=== PATIENT | male | born 1965 | race Caucasian/White ===

== ENCOUNTER 2019-12-12 06:31 | Outpatient (RCR) | payer BC ==
[~2019-12-12] VITALS: Ht 182.9 cm; Wt 90.9 kg
[~2019-12-12 06:31] MED LIST: ACET325T49 PO; ACHD5005 PO; DOCU-143 PO; LOPE-175 PO
== END 2019-12-12 15:44 | disposition home or self-care (01) ==
LOC: PREOP 06:31
PROVIDERS: ATTEND Surgery
DX: Z01.818 Encounter for other preprocedural examination (principal); Z11.59 Encounter for screening for other viral diseases
CPT/HCPCS: 87635

== ENCOUNTER 2019-12-16 11:57 | Day surgery (SDC) | payer BC ==
[2019-12-16] VITALS (8 sets, daily range): BP systolic 115–139; BP diastolic 62–90
[~2019-12-16] VITALS: Ht 182.9 cm; Wt 90.9 kg
[2019-12-16] MEDS ORDERED: LACTATED RINGERS 1,000 ML IV STA (12:00)
[2019-12-16] MEDS ORDERED: LACTATED RINGERS 1,000 ML IV ONE (12:08)
[2019-12-16] MEDS ORDERED: PROPOFOL INJECTION 50 ML IV ONE ×2 (13:06→13:20)
[2019-12-16] MEDS ORDERED: MIDAZOLAM 2 MG/2 ML (VERSED) VIAL ONE (13:06)
--- OUTSIDE RECORDS SUMMARY | 2019-12-16 13:45 | XMS REPORT | Continuity of Care Document ---
Author Organization Unknown Address Unknown Phone Unavailable Allergies Active Description Code Type Severity Reaction Onset Reported/Identified Relationship to Patient Clinical Status Yes No Known Drug Allergies [id number] Drug Allergy Unknown N/A 07/08/2012 Medications There is no data. Problems Date Dx Coded Attending Type Code Diagnosis Diagnosed By 07/05/1543 JA TALAMANTES DO Ot Z01.818 ENCOUNTER FOR OTHER PREPROCEDURAL EXAMIN 07/05/1543 JA TALAMANTES DO Ot Z11. 59 ENCOUNTER FOR SCREENING FOR OTHER VIRAL 05/19/2019 JA TALAMANTES DO Ot A41. 9 SEPSIS, UNSPECIFIED ORGANISM 05/19/2019 JA TALAMANTES DO Ot K56. 50 INTESTNL ADHESIONS, UNSP TO PARTIAL V 05/19/2019 JA TALAMANTES DO Ot K56. 51 INTESTINAL ADHESIONS [BANDS], WITH PARTI 05/19/2019 JA TALAMANTES DO Ot N17. 9 ACUTE KIDNEY FAILURE, UNSPECIFIED 05/19/2019 JA TALAMANTES DO Ot R19. 7 DIARRHEA, UNSPECIFIED 05/19/2019 JA TALAMANTES DO Ot R65. 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 89 ACQUIRED ABSENCE OF OTHER ORGANS Procedures Code Description Performed By Per formed On [id number] DR TELLEZ OF SMALL INTESTINE, OPEN APPROA 05/16/2019 [id number] CORRIEN WEAVER SMALL INTESTINE, OPEN APPROACH 05/16/2019 Results Test Result Range Complete blood count (CBC) with automate d white blood cell (WBC) differential - 05/16/19 11:40 Blood leukocytes automated count (number/volume) 18.1 10*3/uL 4.3-11.0 Blood erythrocytes automated count (number/volume) 5.80 10*6/uL 4.35-5.85 Venous blood hemoglobin measurement (mass/volume) 18.1 g/dL 13.3-17.7 Blood hematocrit (volume fraction) 52 % 40-54 Automated erythrocyte mean corpuscular volume 89 [ foz_us] 80-99 Automated erythrocyte mean corpuscular h emoglobin (mass per erythrocyte) 31 pg 25-34 Automated erythrocyte mean corpuscular h emoglobin concentration measurement (mass/volume) 35 g/dL 32-36 Automated erythrocyte distribution width ratio 14. 8 % 10.0- 14.5 Automated blood platelet count (count/volume) 326 10*3/uL 130-400 Automated blood platelet mean volume measurement 11.0 [foz_us] 7.4-10.4 Automated blood neutrophils/100 leukocytes 82 % 42-75 Automated blood lymphocytes/100 leukocytes 5 % 12-44 Blood monocytes/100 leukocytes 13 % 0-12 Automated blood eosinophils/100 leukocytes 0 % 0-10 Automated blood basophils/100 leukocytes 0 % 0-10 Blood neutrophils automated count (number/volume) 14.9 10*3 1.8-7.8 Blood lymphocytes automated count (number/volume) 0.8 10*3 1.0-4.0 Blood monocytes automated count (number/volume) 2. 4 10*3 0.0-1.0 Automated eosinophil count 0.0 10*3/uL 0 .0-0.3 Automated blood basophil count (count/volume) 0.0 10*3/uL 0.0-0.1 Influenza virus A and B antigen detectio n - 05/16/19 11:40 FLU RESULT NEGATIVE FOR INFLUENZA A AND B ANTIGENS BY IA NRG Manual absolute plasma cell count - 05/06 08/24 11:40 Blood monocytes/100 leukocytes 7 % NRG Manual blood segmented neutrophils/100 leukocytes 78 % NRG Blood band neutrophils/100 leukocytes 6 % NRG Manual blood lymphocytes/100 leukocytes 8 % NRG Manual eosinophils/100 leukocytes in nose 0 % NRG Manual blood basophils/100 leukocytes 0 % NRG Manual blood metamyelocytes/100 leukocytes 1 % NRG Blood Hurd-Clarion bodies detection by light microscop y SLIGHT NRG Blood lactic acid measurement (moles/vol ume) - 05/16/19 12:00 Blood lactic acid measurement (moles/volume) 1.71 mmol/L 0.50-2.00 PT panel in platelet poor plasma by coag ulation assay - 05/16/19 12:00 Prothrombin time (PT) in platelet poor plasma by coagu lation assay 13.2 s 12.2-14.7 INR in platelet poor plasma or blood by coagulation as say 1.0 0.8-1.4 Activated partial thromboplastin time (a PTT) in platelet poor plasma bycoagulation assay - 05/16/19 12:00 Activated partial thromboplastin time (a PTT) in platelet poor plasma bycoagulation assay 31 s 24-35 Comprehensive metabolic panel - 05/16/19 12:00 Serum or plasma sodium measurement (moles/volume) 137 mmol/L 135-145 Serum or plasma potassium measurement (moles/volume) 4.1 mmol/L 3.6-5.0 Serum or plasma chloride measurement (moles/volume) 101 mmol/L 98-107 Carbon dioxide 21 mmol/L 21-32 Serum or plasma anion gap determination (moles/volume) 15 mmol/L 5-14 Serum or plasma urea nitrogen measurement (mass/volume ) 38 mg/dL 7-18 Serum or plasma creatinine measurement (mass/volume) 2.07 mg/dL 0.60-1.30 Serum or plasma urea nitrogen/creatinine mass ratio 18 NRG Serum or plasma creatinine measurement w ith calculation of estimated glomerular filtration rate 34 NRG Serum or plasma glucose measurement (mass/volume) 161 mg/dL 70-105 Serum or plasma calcium measurement (mass/volume) 9.7 mg/dL 8.5-10.1 Serum or plasma total bilirubin measurement (mass/volu me) 0.6 mg/dL 0.1-1.0 Serum or plasma alkaline phosphatase antolin surement (enzymatic activity/volume) 96 U/L 40-136 Serum or plasma aspartate aminotransfera se measurement (enzymatic activity/volume) 38 U/L 5-34 Serum or plasma alanine aminotransferase measurement (enzymatic activity/volume) 43 U/L 0-55 Serum or plasma protein measurement (mass/volume) 9.2 g/dL 6.4-8.2 Serum or plasma albumin measurement (mass/volume) 5.0 g/dL 3.2-4.5 Bacterial blood culture - 05/16/19 12:00 Bacterial blood culture NG NRG Bacterial blood culture - 05/16/19 12:06 Bacterial blood culture NG NRG Whole blood basic metabolic panel - 05/06 09/24 06:13 Serum or plasma sodium measurement (moles/volume) 140 mmol/L 135-145 Serum or plasma potassium measurement (moles/volume) 4.0 mmol/L 3.6-5.0 Serum or plasma chloride measurement (moles/volume) 106 mmol/L 98-107 Carbon dioxide 23 mmol/L 21-32 Serum or plasma anion gap determination (moles/volume) 11 mmol/L 5-14 Serum or plasma urea nitrogen measurement (mass/volume ) 30 mg/dL 7-18 Serum or plasma creatinine measurement (mass/volume) 1.27 mg/dL 0.60-1.30 Serum or plasma urea nitrogen/creatinine mass ratio 24 NRG Serum or plasma creatinine measurement w ith calculation of estimated glomerular filtration rate 59 NRG Serum or plasma glucose measurement (mass/volume) 141 mg/dL 70-105 Serum or plasma calcium measurement (mass/volume) 7.9 mg/dL 8.5-10.1 Automated blood complete blood count ([employer] mogram) panel - 05/17/19 06:13 Blood leukocytes automated count (number/volume) 17.0 10*3/uL 4.3-11.0 Blood erythrocytes automated count (number/volume) 4.98 10*6/uL 4.35-5.85 Venous blood hemoglobin measurement (mass/volume) 15.4 g/dL 13.3-17.7 Blood hematocrit (volume fraction) 45 % 40-54 Automated erythrocyte mean corpuscular volume 91 [ foz_us] 80-99 Automated erythrocyte mean corpuscular h emoglobin (mass per erythrocyte) 31 pg 25-34 Automated erythrocyte mean corpuscular h emoglobin concentration measurement (mass/volume) 34 g/dL 32-36 Automated erythrocyte distribution width ratio 15. 3 % 10.0- 14.5 Automated blood platelet count (count/volume) 313 10*3/uL 130-400 Automated blood platelet mean volume measurement 10.9 [foz_us] 7.4-10.4 Automated blood complete blood count ([employer] mogram) panel - 05/18/19 05:02 Blood leukocytes automated count (number/volume) 12.5 10*3/uL 4.3-11.0 Blood erythrocytes automated count (number/volume) 4.39 10*6/uL 4.35-5.85 Venous blood hemoglobin measurement (mass/volume) 13.8 g/dL 13.3-17.7 Blood hematocrit (volume fraction) 41 % 40-54 Automated erythrocyte mean corpuscular volume 93 [ foz_us] 80-99 Automated erythrocyte mean corpuscular h emoglobin (mass per erythrocyte) 31 pg 25-34 Automated erythrocyte mean corpuscular h emoglobin concentration measurement (mass/volume) 34 g/dL 32-36 Automated erythrocyte distribution width ratio 14. 9 % 10.0- 14.5 Automated blood platelet count (count/volume) 248 10*3/uL 130-400 Automated blood platelet mean volume measurement 11.4 [foz_us] 7.4-10.4 Whole blood basic metabolic panel - 05/06 10/22 05:02 Serum or plasma sodium measurement (moles/volume) 142 mmol/L 135-145 Serum or plasma potassium measurement (moles/volume) 3.9 mmol/L 3.6-5.0 Serum or plasma chloride measurement (moles/volume) 107 mmol/L 98-107 Carbon dioxide 26 mmol/L 21-32 Serum or plasma anion gap determination (moles/volume) 9 mmol/L 5-14 Serum or plasma urea nitrogen measurement (mass/volume ) 25 mg/dL 7-18 Serum or plasma creatinine measurement (mass/volume) 0.90 mg/dL 0.60-1.30 Serum or plasma urea nitrogen/creatinine mass ratio 28 NRG Serum or plasma creatinine measurement w ith calculation of estimated glomerular filtration rate > NRG Serum or plasma glucose measurement (mass/volume) 103 mg/dL 70-105 Serum or plasma calcium measurement (mass/volume) 7.9 mg/dL 8.5-10.1 Magnesium - 05/18/19 05:02 Magnesium 2.2 mg/dL 1.6-2.4 Coronavirus SARS-CoV-2 SO 2019 - 0 12:56 Coronavirus Ab [Units/volume] in Serum Negative Negative Encounters ACCT No. Visit Date/Time Discharge Status Pt. Type Provider Facility Loc./Unit Complaint [id number] 09/16/2019 14:19:00 09/16/2019 23:59 :00 DIS Outpatient Maurer, Kiara [id number] 08/28/2019 13:38:00 08/28/2019 23:59 :00 DIS Outpatient Kiara Maurer [id number] 12/12/2019 06:31:00 020 15:44:00 DIS Outpatient JA TALAMANTES DO [facility] PREOP COLONOSCOPY [id number] 05/16/2019 13:55:00 019 17:45:00 DIS Inpatient JA TALAMANTES DO [facility] 4TH SMALL BOWEL OBSTRUCTION [id number] 12/16/2019 13:30:00 P EN Preadmit JA TALAMANTES DO [facility] ENDO SCREENING
--- NOTE | 2019-12-16 13:46 | Anesthesia-General Post-Op ---
MAC Patient Condition Mental Status/LOC: Same as Preop Cardiovascular: Satisfactory Nausea/Vomiting: Absent Respiratory: Satisfactory Pain: Controlled Complications: Absent Post Op Complications Complications None Follow Up Care/Instructions Patient Instructions None needed. Anesthesiology Discharge Order Discharge Order Patient is doing well, no complaints, stable vital signs, no apparent adverse anesthesia problems. No complications reported per nursing. JOANNE CARDOSO CRNA December 16, 2019 13:46
--- NOTE | 2019-12-16 13:52 | Progress Note-Post Operative ---
Post-Operative Progess Note Surgeon (s)/Peg Driver (s) Surgeon JA TALAMANTES DO Peg Driver: na Pre-Operative Diagnosis screening colonoscopy Post-Operative Diagnosis normal colon Procedure & Operative Findings Date of Procedure 12/16/19 Procedure Performed/Findings colonoscopy Anesthesia Type per ground defence officer Estimated Blood Loss Estimated blood loss (mL): none Specimens/Packing Specimens Removed na JA TALAMANTES DO December 16, 2019 13:52
--- NOTE | 2019-12-16 13:53 | Discharge Inst-Simple/Standard ---
Discharge Inst-Standard Patient Instructions/Follow Up Plan of Care/Instructions/FU: Repeat colonoscopy in 10 years unless family history of colon cancer which would be 5 years. Any issues before then be seen at that time. Activity as Tolerated: Yes Discharge Diet: Regular Diet JA TALAMANTES DO December 16, 2019 13:53
--- NOTE | 2019-12-16 14:55 | NUR ---
LATE NOTE; PATIENT VERY COMBATIVE AFTER PROCEDURE; BLOOD SUGAR DONE TO CHECK HYPOGLYCEMIA; RATE 99. VITAL SIGNS STABLE WITH 02 SAT RATE AT 95%. PRESENT; DR. TALAMANTES AND TREY WILKS CALLED IN TO ASSESS SITUATION. PATIENT INSISTING ON GOING HOME; COMFORTABLE WITH SITUATION; ENCOURAGED TO CALL FOR ASSISTANCE IF NEED; PATIENT BEHAVIOR ODD; OUT-OF CHARACTER. ENCOURAGED TO TAKE PATIENT HOME; FEED HIM AND REST IN RECLINER; AND CALL FOR ASSISTANCE IF NEED. Addendum: 12/16/19 at 1459 by CHRIS BARCLAY RN Amended: Links added.
--- NOTE | 2019-12-16 15:23 | OPERATIVE REPORT ---
DATE OF SERVICE: 12/16/2019 PREOPERATIVE DIAGNOSIS: Screening colonoscopy. POSTOPERATIVE DIAGNOSIS: Normal colon. PROCEDURE: Colonoscopy. SURGEON: Ja Strickland DO ANESTHESIA: Per NET TECHNICAL ARCHITECT. ESTIMATED BLOOD LOSS: None. COMPLICATIONS: None. INDICATIONS: The patient is a 54-year-old male needing screening colonoscopy. He understands risks and benefits of procedure and wished to proceed with procedure. Consent was signed in the chart. DESCRIPTION OF PROCEDURE: The patient was taken to the endoscopy suite, placed in left lateral recumbent position. Timeout was performed. Digital rectal exam was performed. There were no palpable polyps, masses or ulcerations. Scope was inserted in the rectum and advanced all the way to cecum with minimal difficulty. Prep was adequate. Scope was then slowly retracted back. There were no polyps, masses or ulcerations within the cecum, ascending, transverse and descending and sigmoid colon. Once in the rectum, scope was retroflexed noting no other pathology. Scope was returned to its normal position, slowly withdrawn until completely removed. The patient tolerated procedure well without any complications, taken to recovery room in stable condition. RECOMMENDATIONS: The patient will need repeat colonoscopy in 10 years unless family history of colon cancer, which would then be 5 years. Any issues before that, be seen at that time. Job ID: [id number] DocumentID: [id number] Dictated Date: 12/16/2019 13:51:12 Rivet Sticker Date: 12/16/2019 15:22:34 Dictated By: JA STRICKLAND DO
== END 2019-12-16 14:35 | disposition home or self-care (01) ==
LOC: ENDO 11:57
PROVIDERS: ATTEND Surgery
DX: Z12.11 Encounter for screening for malignant neoplasm of colon (principal); Z90.89 Acquired absence of other organs; Z82.49 Family history of ischemic heart disease and other diseases of the circulatory system
CPT/HCPCS: 82962

== ENCOUNTER 2021-09-06 18:20 | Emergency (ER) | payer BC ==
[~2021-09-06] VITALS: Ht 190 cm; Wt 90.9 kg
--- NOTE | 2021-09-06 18:57 | ED Abdominal Pain ---
General Chief Complaint: Abdominal/GI Problems Stated Complaint: HERNIA Nursing Triage Note: PT STATES LT SIDE GROIN HERNIA FOR ABOUT A MONTH, PT COUGHED EARLIER AND HAD EXTREME PAIN IN THE RT GROIN AREA Source of Information: Patient Exam Limitations: No Limitations (DIANA RODRIGUEZ APRN) History of Present Illness Date Seen by Provider: Sep 06, 2021 Time Seen by Provider: 18:56 Initial Comments Unable to be reduced for about a month. Has been coughing today and tonight he developed sudden onset of right sided low back lower abdomen and severe testicu lar pain. Timing/Duration: 4-6 Hours Severity/Quality: Moderate Location: RLQ Radiation: No Radiation Activities at Onset: None (DIANA RODRIGUEZ APRN) Allergies and Home Medications Allergies Coded Allergies: No Known Drug Allergies (Unverified , 07/08/12) Patient Home Medication List Home Medication List Reviewed: Yes (DIANA RODRIGUEZ APRN) Cefuroxime Axetil (Cefuroxime) 250 Mg Tablet, 250 MG PO BID Prescribed by: DIANA RODRIGUEZ on 09/06/211953 Ketorolac Tromethamine (Ketorolac Tromethamine) 10 Mg Tablet, 10 MG PO TID PRN for PAIN-MODERATE (5-7) Prescribed by: DIANA RODRIGUEZ on 09/06/211953 Ondansetron (Ondansetron Odt) 8 Mg Tab.rapdis, 8 MG PO Q6H PRN for NAUSEA/VOMITING Prescribed by: DIANA RODRIGUEZ on 09/06/211953 Oxycodone HCl/Acetaminophen (Percocet 5-325 mg Tablet) 1 Each Tablet, 1 TAB PO Q4H Prescribed by: DIANA RODRIGUEZ on 09/06/211954 Tamsulosin HCl (Flomax) 0.4 Mg Cap, 0.4 MG PO DAILY Prescribed by: DIANA RODRIGUEZ on 09/06/211953 Review of Systems Review of Systems Constitutional: see HPI EENTM: No Symptoms Reported Respiratory: No Symptoms Reported Cardiovascular: No Symptoms Reported Gastrointestinal: See HPI Genitourinary: See HPI Musculoskeletal: no symptoms reported Skin: no symptoms reported Psychiatric/Neurological: No Symptoms Reported Endocrine: No Symptoms Reported Hematologic/Lymphatic: No Symptoms Reported (DIANA RODRIGUEZ APRN) Past Gdzwtle-Mwlglh-Leqied Hx Immunizations Up To Date Tetanus Booster (TDap): Unknown (DIANA RODRIGUEZ APRN) Seasonal Allergies Seasonal Allergies: No (DIANA RODRIGUEZ APRN) Past Medical History Surgeries: Yes ( HERNIA, bowel resection, splenectomy) Abdominal, Appendectomy Respiratory: No Cardiac: No Neurological: No Reproductive Disorders: No Genitourinary: No Gastrointestinal: Yes (Partial SBO) Abdominal Hernia Musculoskeletal: No Endocrine: No HEENT: No Cancer: No Psychosocial: No Integumentary: No Blood Disorders: No (DIANA RODRIGUEZ APRN) Family Medical History No Pertinent Family Hx (DIANA RODRIGUEZ APRN) Physical Exam Vital Signs Vital Signs - First Documented 09/06/21 18:48 Temp 36.6 Pulse 76 Resp 20 B/P (MAP) 147/88 (107) Pulse Ox 98 O2 Delivery Room Air (ANGE,ESE K DO) Vital Signs Capillary Refill : Less Than 3 Seconds (DIANA RODRIGUEZ APRN) Height/Weight/BMI Height: '" Weight: lbs. oz. kg; 25.00 BMI Method: General Appearance: WD/WN, no apparent distress HEENT: PERRL/EOMI, normal ENT inspection Respiratory: no respiratory distress, no accessory muscle use Gastrointestinal: normal bowel sounds, soft, tenderness Extremities: normal range of motion, non-tender Neurologic/Psychiatric: alert, normal mood/affect, oriented x 3 Skin: normal color, warm/dry (DIANA RODRIGUEZ APRN) Progress/Results/Core Measures Results/Orders Lab Results Laboratory Tests Test 09/06/21 18:50 09/06/21 19:34 Range/Units White Blood Count 9.0 4.3-11.0 10^3/uL Red Blood Count 4.52 4.30-5.52 10^6/uL Hemoglobin 14.3 13.3-17.7 g/dL Hematocrit 41 40-54 % Mean Corpuscular Volume 91 80-99 fL Mean Corpuscular Hemoglobin 32 25-34 pg Mean Corpuscular Hemoglobin Concent 35 32-36 g/dL Red Cell Distribution Width 13.4 10.0-14.5 % Platelet Count 339 130-400 10^3/uL Mean Platelet Volume 10.3 9.0-12.2 fL Immature Granulocyte % (Auto) 0 % Neutrophils (%) (Auto) 50 42-75 % Lymphocytes (%) (Auto) 33 12-44 % Monocytes (%) (Auto) 14 H 0-12 % Eosinophils (%) (Auto) 3 0-10 % Basophils (%) (Auto) 1 0-10 % Neutrophils # (Auto) 4.4 1.8-7.8 10^3/uL Lymphocytes # (Auto) 2.9 1.0-4.0 10^3/uL Monocytes # (Auto) 1.3 H 0.0-1.0 10^3/uL Eosinophils # (Auto) 0.3 0.0-0.3 10^3/uL Basophils # (Auto) 0.1 0.0-0.1 10^3/uL Immature Granulocyte # (Auto) 0.0 0.0-0.1 10^3/uL Sodium Level 139 135-145 MMOL/L Potassium Level 3.8 3.6-5.0 MMOL/L Chloride Level 105 98-107 MMOL/L Carbon Dioxide Level 22 21-32 MMOL/L Anion Gap 12 5-14 MMOL/L Blood Urea Nitrogen 20 H 7-18 MG/DL Creatinine 0.90 0.60-1.30 MG/DL Estimat Glomerular Filtration Rate 99 BUN/Creatinine Ratio 22 Glucose Level 137 H 70-105 MG/DL Calcium Level 8.9 8.5-10.1 MG/DL Corrected Calcium 8.9 8.5-10.1 MG/DL Total Bilirubin 0.4 0.1-1.0 MG/DL Aspartate Amino Transf (AST/SGOT) 22 5-34 U/L Alanine Aminotransferase (ALT/SGPT) 25 0-55 U/L Alkaline Phosphatase 68 40-136 U/L Total Protein 7.1 6.4-8.2 GM/DL Albumin 4.0 3.2-4.5 GM/DL Urine Color YELLOW Urine Clarity SL CLOUDY Urine pH 6.0 5-9 Urine Specific [place] 1.025 H 1.016-1.022 Urine Protein TRACE H NEGATIVE Urine Glucose (UA) NEGATIVE NEGATIVE Urine Ketones NEGATIVE NEGATIVE Urine Nitrite NEGATIVE NEGATIVE Urine Bilirubin NEGATIVE NEGATIVE Urine Urobilinogen 1.0 < = 1.0 MG/DL Urine Leukocyte Esterase NEGATIVE NEGATIVE Urine RBC (Auto) 3+ H NEGATIVE Urine RBC 50-100 H /HPF Urine WBC RARE /HPF Urine Crystals PRESENT H /LPF Urine Amorphous Sediment RARE JUTSIN URATES H /LPF Urine Bacteria TRACE /HPF Urine Casts NONE /LPF Urine Mucus SMALL H /LPF Urine Culture Indicated NO (ANGE,ESE K DO) Medications Given in ED Current Medications Medications Dose Ordered Sig/Lenin Route Start Time Stop Time Status Last Admin Dose Admin Ceftriaxone Sodium/Dextrose 50 ml @ 100 mls/hr ONCE ONCE IV 09/06/21 20:00 09/06/21 20:29 DC 09/06/21 20:08 100 MLS/HR Fentanyl Citrate 50 mcg ONCE ONCE IVP 09/06/21 19:00 09/06/21 19:01 DC 09/06/21 19:11 50 MCG Ketorolac Tromethamine 15 mg ONCE ONCE IVP 09/06/21 19:00 09/06/21 19:01 DC 09/06/21 19:11 15 MG Oxycodone/ Acetaminophen 1 ea Q4H PRN PO 09/06/21 20:15 09/06/21 20:41 DC 09/06/21 20:17 1 EA (ESE CASSIDY DO) Vital Signs/I&O 09/06/21 09/06/21 09/06/21 09/06/21 18:48 19:11 19:11 20:41 Temp 36.6 36.6 36.6 36.6 Pulse 76 60 Resp 20 16 B/P (MAP) 147/88 (107) 128/74 Pulse Ox 98 98 O2 Delivery Room Air Room Air 09/06/21 23:59 Intake Total 1050 ml Balance 1050 ml (ESE CASSIDY DO) Blood Pressure Mean: 107 Departure Communication (Admissions) NAME: [facility] REC#: [id number] PT STATUS: REG ER : 1965 PHYSICIAN: DIANA RODRIGUEZ CLAM SHUCKING MACHINE TENDER ADMIT DATE: 09/06/21/ER Draft Date of Exam:09/06/21 CT ABD/PELVIS WO(KIDNEY STONE) PROCEDURE: CT urinary tract, rule out kidney stone. TECHNIQUE: Multiple contiguous axial images were obtained through the abdomen and pelvis without the use of intravenous contrast. Auto Exposure Controls were utilized during the CT exam to meet ALARA standards for radiation dose reduction. INDICATION: Right flank pain and right groin pain. Comparison is made with prior CT from 05/16/2019. The lung bases are clear. The liver and gallbladder are unremarkable. Pancreas is unremarkable. 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 No adrenal mass is detected. Left kidney does contain approximately 3 mm nonobstructing calculus in the midportion. Right kidney shows moderate hydronephrosis. This appears to be caused by a 7 mm calculus in the proximal right ureter near the UPJ. Remainder of the right ureter is normal caliber. No bladder calculi are seen. Aorta is nonaneurysmal. Bowel loops appear to be nonobstructed. There is moderate stool in the colon. Portion of the descending colon does extend into left inguinal hernia. This appears to be at the junction of the descending colon and sigmoid. No bowel obstruction is seen. There is no strangulation. There is no free fluid or fluid collection. Bladder and prostate are unremarkable. IMPRESSION: 1. Nonobstructing left-sided nephrolithiasis. There is also a 7 mm calculus in the proximal right ureter at the UPJ producing moderate hydronephrosis. 2. Left inguinal hernia containing the junction of the descending colon and sigmoid. No definite evidence of strangulation or bowel obstruction is seen. Dictated on workstation # [id number] Dict: 09/06/211910 Trans: 09/06/211918 [facility] [id number] Interpreted by: CYRIL FOX MD Electronically signed by: (DIANA RODRIGUEZ APRN) Impression Primary Impression: Right ureteral calculus Disposition: 01 HOME, SELF-CARE Condition: Stable Departure-Patient Inst. Decision time for Depature: 19:13 (DIANA RODRIGUEZ APRN) Referrals: WILLI PRESTON DO (PCP) Primary Care Physician IGNACIO POSADAS MD Patient Instructions: Kidney Stones (DC) Add. Discharge Instructions: 1. Call Dr. Posadas tomorrow to make an appointment to be seen for follow-up. Return to ER for any worsening such as fevers, uncontrollable vomiting or intolerable pain. Take the pain medication as directed. All discharge instructions reviewed with patient and/or family. Voiced understanding. Scripts Oxycodone HCl/Acetaminophen (Percocet 5-325 mg Tablet) 1 Each Tablet 1 TAB PO Q4H for PAIN-MODERATE MDD 6 TABS for 7 Days, #20 TAB Prov: DIANA RODRIGUEZ APRN 09/06/21 Ketorolac Tromethamine (Ketorolac Tromethamine) 10 Mg Tablet 10 MG PO TID PRN for PAIN-MODERATE (5-7), #9 TAB Prov: DIANA RODRIGUEZ APRN 09/06/21 Tamsulosin HCl (Flomax) 0.4 Mg Cap 0.4 MG PO DAILY, #14 CAP Prov: DIANA RODRIGUEZ APRN 09/06/21 Ondansetron (Ondansetron Odt) 8 Mg Tab.rapdis 8 MG PO Q6H PRN for NAUSEA/VOMITING, #14 TAB Prov: DIANA RODRIGUEZ APRN 09/06/21 Cefuroxime Axetil (Cefuroxime) 250 Mg Tablet 250 MG PO BID, #14 TAB Prov: DIANA RODRIGUEZ APRN 09/06/21 Work/School Note: Work Release Form Date Seen in the Emergency Department: Sep 06, 2021 Return to Work: Sep 09, 2021 ATTENDING PHYSICIAN NOTE: I WAS PHYSICALLY PRESENT ER PHYSICIAN WHEN THIS PATIENT WAS IN ER, BUT I WAS NOT INVOLVED IN ANY DECISION MAKING OR ANY CARE OF THIS PATIENT. (ESE CASSIDY DO) Copy Copies To 1: IGNACIO POSADAS MD, PETER J APRN Sep 06, 2021 18:57 ESE CASSIDY DO Sep 07, 2021 01:25
[2021-09-06] MEDS ORDERED: KETOROLAC 30 MG/ML VIAL IVP ONE (19:00)
[2021-09-06] MEDS ORDERED: LACTATED RINGERS 1,000 ML IV SCH (19:00)
[2021-09-06] MEDS ORDERED: fentaNYL INJ 100 MCG/2 ML AMP IVP ONE (19:00)
[2021-09-06 19:05] LABS: BASOPHILS # (AUTO) 0.1 10^3/uL (0.0-0.1); BASOPHILS % (AUTO) 1 % (0-10); EOSINOPHILS # (AUTO) 0.3 10^3/uL (0.0-0.3); EOSINOPHILS % (AUTO) 3 % (0-10); HEMATOCRIT 41 % (40-54); HEMOGLOBIN 14.3 g/dL (13.3-17.7); LYMPHOCYTES # (AUTO) 2.9 10^3/uL (1.0-4.0); LYMPHOCYTES % (AUTO) 33 % (12-44); MEAN CORPUSCULAR HEMOGLOBIN 32 pg (25-34); MEAN CORPUSCULAR HGB CONC 35 g/dL (32-36); MEAN CORPUSCULAR VOLUME 91 fL (80-99); MEAN PLATELET VOLUME 10.3 fL (9.0-12.2); MONOCYTES # (AUTO) 1.3 10^3/uL (0.0-1.0); MONOCYTES % (AUTO) 14 % (0-12); NEUTROPHILS # (AUTO) 4.4 10^3/uL (1.8-7.8); NEUTROPHILS % (AUTO) 50 % (42-75); PLATELET COUNT 339 10^3/uL (130-400)
[2021-09-06 19:13] LABS: POTASSIUM 3.8 MMOL/L (3.6-5.0)
[2021-09-06 19:14] LABS: CALCIUM 8.9 MG/DL (8.5-10.1)
[2021-09-06 19:15] LABS: TOTAL PROTEIN 7.1 GM/DL (6.4-8.2)
[2021-09-06 19:17] LABS: BILIRUBIN,TOTAL 0.4 MG/DL (0.1-1.0)
[2021-09-06 19:19] LABS: CREATININE SERUM 0.9 MG/DL (0.60-1.30)
--- NOTE | 2021-09-06 19:20 | Diagnostic Imaging Report ---
PROCEDURE: CT urinary tract, rule out kidney stone. TECHNIQUE: Multiple contiguous axial images were obtained through the abdomen and pelvis without the use of intravenous contrast. Auto Exposure Controls were utilized during the CT exam to meet ALARA standards for radiation dose reduction. INDICATION: Right flank pain and right groin pain. Comparison is made with prior CT from 05/16/2019. The lung bases are clear. The liver and gallbladder are unremarkable. Pancreas is unremarkable. 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 No adrenal mass is detected. Left kidney does contain approximately 3 mm nonobstructing calculus in the midportion. Right kidney shows moderate hydronephrosis. This appears to be caused by a 7 mm calculus in the proximal right ureter near the UPJ. Remainder of the right ureter is normal caliber. No bladder calculi are seen. Aorta is nonaneurysmal. Bowel loops appear to be nonobstructed. There is moderate stool in the colon. Portion of the descending colon does extend into left inguinal hernia. This appears to be at the junction of the descending colon and sigmoid. No bowel obstruction is seen. There is no strangulation. There is no free fluid or fluid collection. Bladder and prostate are unremarkable. IMPRESSION: 1. Nonobstructing left-sided nephrolithiasis. There is also a 7 mm calculus in the proximal right ureter at the UPJ producing moderate hydronephrosis. 2. Left inguinal hernia containing the junction of the descending colon and sigmoid. No definite evidence of strangulation or bowel obstruction is seen. Dictated by: Dictated on workstation # [id number]
[2021-09-06 19:41] LABS: BILIRUBIN,URINE NEGATIVE (NEGATIVE); CLARITY,URINE SL CLOUDY; COLOR,URINE YELLOW; GLUCOSE, URINE (UA) NEGATIVE (NEGATIVE); KETONES,URINE NEGATIVE (NEGATIVE); LEUKOCYTE ESTERASE ,URINE NEGATIVE (NEGATIVE); NITRITE,URINE NEGATIVE (NEGATIVE); PROTEIN,URINE TRACE (NEGATIVE)
[2021-09-06] MEDS ORDERED: KETO10TA PO (19:54)
[2021-09-06] MEDS ORDERED: CEFU250T80 PO (19:54)
[2021-09-06] MEDS ORDERED: ONDA8TAB13 PO (19:54)
[2021-09-06] MEDS ORDERED: TMSL.4C PO (19:54)
[2021-09-06] MEDS ORDERED: OXYC1TAB87 PO (19:54)
[2021-09-06] MEDS ORDERED: cefTRIAXone 1 GM PRE-MIX 50 ML IV ONE (20:00)
[2021-09-06 20:02] LABS: AMORPHOUS SEDIMENT,UR RARE AMOR URATES /LPF; BACTERIA,URINE TRACE /HPF; RBC,URINE 50-100 /HPF; WBC,URINE RARE /HPF
[2021-09-06] MEDS ORDERED: RX-ONDANSETRON 4 MG ODT (ZOFRAN) PPK #4 PO STA (20:04)
[2021-09-06] MEDS ORDERED: RX-OXYCODONE/APAP 5-325 MG #4 TAB PK PO PRN (20:15)
--- NOTE | 2021-09-06 20:29 | Diagnostic Imaging Report ---
INDICATION: Right renal stone. TECHNIQUE: 2 supine view of the abdomen 8:02 PM CORRELATION STUDY: CT 09/06/2021 FINDINGS: 9 mm calcification in the right mid abdomen, just lateral to the L3 vertebral body and transverse process consistent with a right ureteral stone. Large amount of overlying bowel gas and stool obscures detail. Prior right inguinal hernia repair with mesh. IMPRESSION: 1. 9 mm calcification right mid abdomen compatible with right ureteral stone. Dictated by: Dictated on workstation # [id number]
[2021-09-06 20:41] VITALS: BP 128/74
== END 2021-09-06 20:41 | disposition home or self-care (01) ==
LOC: EDUNIT# 18:20 → ER 18:21
DX: N13.2 Hydronephrosis with renal and ureteral calculous obstruction (principal)
CPT/HCPCS: 36415; 74018; 74176; 80053; 81000; 85025

== ENCOUNTER → 2021-09-09 | Outpatient (CLI) | payer BC ==
[~2021-09-09] MED LIST changes: +CEFU250T80 PO; +KETO10TA PO; +NITR-65 PO; +ONDA8TAB13 PO; +OXYC1TAB87 PO; +TMSL.4C PO
--- NOTE | 2021-09-09 09:29 | Diagnostic Imaging Report ---
INDICATION: Ureteral stone. TIME OF EXAM: 9:15 AM Correlation is made with abdominal radiograph from 09/06/2021. There is a calcific density projected on the right side at the L3-L4 disc space suggestive of a ureteral calculus. This has migrated slightly more inferiorly when compared with study from 3 days earlier. Bowel gas pattern shows moderate stool in the right colon. Calcific densities in the pelvis are stable. IMPRESSION: Known right ureteral calculus has shown some migration slightly more distally when compared with radiograph from 3 days earlier. Dictated by: Dictated on workstation # [id number]
== END ==
LOC: RAD 08:57
PROVIDERS: ATTEND Urology
DX: N20.1 Calculus of ureter (principal)
CPT/HCPCS: 74018

== ENCOUNTER 2021-09-12 05:35 | Outpatient (CLI) | payer BC ==
[~2021-09-12] VITALS: Ht 190.5 cm; Wt 90.9 kg
[~2021-09-12 05:35] MED LIST changes: -NITR-65 PO
[2021-09-13] MEDS ORDERED: KETO10TA PO (12:53)
[2021-09-13] MEDS ORDERED: NITR-65 PO (12:58)
== END 2021-09-12 10:16 ==
LOC: PREOP 05:35
PROVIDERS: ATTEND Urology
DX: Z01.818 Encounter for other preprocedural examination (principal)

== ENCOUNTER 2021-09-13 06:45 | Day surgery (SDC) | payer BC ==
[~2021-09-13] VITALS: Ht 190.5 cm; Wt 90.9 kg
[2021-09-13] VITALS (10 sets, daily range): BP systolic 114–144; BP diastolic 70–93
[2021-09-13] MEDS ORDERED: cefTRIAXone 1 GM PRE-MIX 50 ML IV ONE (07:30)
--- NOTE | 2021-09-13 08:02 | Progress Note-Pre Operative ---
Pre-Operative Progress Note H&P Reviewed The H&P was reviewed, patient examined and no changes noted. Date Seen by Provider: Sep 13, 2021 Time Seen by Provider: 08:01 Date H&P Reviewed: Sep 13, 2021 Time H&P Reviewed: 08:01 Pre-Operative Diagnosis: RT PROXIMAL URETERAL STONE IGNACIO HINTON MD Sep 13, 2021 08:01
[2021-09-13] MEDS: LACTATED RINGERS 1,000 ML IV PRN ×2 (08:14→11:38)
--- NOTE | 2021-09-13 08:20 | Diagnostic Imaging Report ---
EXAMINATION: Abdomen 1 view HISTORY: ESWL COMPARISON: 09/09/2021 FINDINGS: There is a moderate amount of gas and stool throughout the colon. Nonobstructive bowel gas pattern. There is 0.8 cm calcification within the right mid abdomen similar in position compared to 09/09/2021. Multiple coils overlying the right pelvis. The lung bases are clear. The osseous structures are intact. IMPRESSION: A stable 0.8 cm calcification within the right mid abdomen compatible with known ureteral calculus. Dictated by: Dictated on workstation # [id number]
--- NOTE | 2021-09-13 10:17 | Progress Note-Post Operative ---
Post-Operative Progess Note Surgeon (s)/Trophy Assembler (s) Surgeon IGNACIO HINTON MD Trophy Assembler: NONE Pre-Operative Diagnosis RT PROXIMAL URETERAL STONE Post-Operative Diagnosis SAME Procedure & Operative Findings Date of Procedure 09/13/21 Procedure Performed/Findings RT ESWL Anesthesia Type GENERAL Estimated Blood Loss Estimated blood loss (mL): NONE Specimens/Packing Specimens Removed NONE Packing: NONE IGNACIO HINTON MD Sep 13, 2021 10:17
--- NOTE | 2021-09-13 10:19 | Discharge Inst-Urology ---
Discharge Inst-Urology Reconcile Patient Problems Problems Reviewed?: Yes Final Diagnosis LT URETERAL AND RT RENAL STONES Patient Instructions/Follow Up Plan/Assessment/Instructions Please make appointment to been seen in office Tuesday 09/19, KUB prior to it. KUB on way home Post ESWL instructions Increase oral fluids for 48 hours and then as needed. Diet and Activity as tolerated. If questions or concerns contact your physician Or seek help at emergency department. IGNACIO HINTON MD Sep 13, 2021 10:19
[2021-09-13] MEDS ORDERED: proPOfol 200 MG/20 ML (DIPRIVAN) VIAL IV ONE (10:50)
[2021-09-13] MEDS ORDERED: fentaNYL INJ 100 MCG/2 ML AMP ONE (10:50)
[2021-09-13] MEDS ORDERED: ONDANSETRON 4 MG/2 ML (SDV) Z0FRAN ONE (10:50)
[2021-09-13] MEDS ORDERED: LIDOCAINE PF 2% 5 ML (XYLOCAINE) VIAL ONE (10:50)
[2021-09-13] MEDS ORDERED: SEVOFLURANE (ULTANE) 15 ML INHAL SOLN ONE ×2 (10:50→11:33)
[2021-09-13] MEDS ORDERED: MIDAZOLAM 2 MG/2 ML (VERSED) VIAL ONE (10:50)
[2021-09-13] MEDS ORDERED: PHENYLEPHRINE 100 MCG/ML 10 ML (ANESTHESIA) SYR ONE (11:05)
[2021-09-13] MEDS ORDERED: KETOROLAC 30 MG/ML VIAL ONE (11:16)
[2021-09-13] MEDS ORDERED: FUROSEMIDE 40 MG/4 ML INJ (LASIX) ONE (11:16)
[2021-09-13] MEDS ORDERED: HYDROmorphone 2 MG/ML VIAL (DILAUDID) IV ONE (12:00)
[2021-09-13] MEDS ORDERED: ONDANSETRON 4 MG/2 ML (SDV) Z0FRAN IVP PRN (12:00)
[2021-09-13] MEDS ORDERED: KETO10TA PO (12:53)
[2021-09-13] MEDS ORDERED: NITR-65 PO (12:58)
--- NOTE | 2021-09-13 13:40 | Diagnostic Imaging Report ---
EXAMINATION: Abdomen, 1 view. HISTORY: Post lithotripsy. COMPARISON: 09/13/2021. FINDINGS: The previously seen calcification projecting adjacent to the L3-L4 disc space is no longer apparent. There are phleboliths in the pelvis. There has been a prior hernia repair. A large amount of stool is present. No dilated bowel. IMPRESSION: The previously seen calcification adjacent to the L3-L4 disc space is no longer apparent. Dictated by: Dictated on workstation # [id number]
--- NOTE | 2021-09-13 15:59 | OPERATIVE REPORT ---
DATE OF SERVICE: 09/13/2021 PREOPERATIVE DIAGNOSIS: Right proximal ureteral stone. POSTOPERATIVE DIAGNOSIS: Right proximal ureteral stone. OPERATION PERFORMED: Right ESWL. SURGEON: Rony Hinton MD. ANESTHESIA: General. COMPLICATIONS: None. DESCRIPTION OF PROCEDURE: Under satisfactory general anesthesia, the patient in supine position on the ESWL table, the right proximal ureteral stone was localized. Shocks were delivered at kV of 6. Total of 3000 shocks completely fragmented the stone. The patient received 40 mg of Lasix and 30 mg of Toradol IV at the end of the procedure. He tolerated the procedure and anesthesia well and was sent to recovery room in a stable condition. Job ID: [id number] DocumentID: [id number] Dictated Date: 09/13/2021 11:34:14 Watch Leader Date: 09/13/2021 15:59:07 Dictated By: RONY HINTON MD
--- NOTE | 2021-09-14 15:18 | Anesthesia-General Post-Op ---
General Patient Condition Mental Status/LOC: Same as Preop Cardiovascular: Satisfactory Nausea/Vomiting: Absent Respiratory: Satisfactory Pain: Controlled Complications: Absent Post Op Complications Complications None Follow Up Care/Instructions Patient Instructions None needed. Anesthesia/Patient Condition Patient Condition Patient is doing well, no complaints, stable vital signs, no apparent adverse anesthesia problems. No complications reported per nursing. D/C home per [facility] Criteria: Yes JESSICA ECHOLS CRNA Sep 14, 2021 15:18
== END 2021-09-13 14:12 | disposition home or self-care (01) ==
LOC: SDC 06:45
PROVIDERS: ATTEND Urology
DX: N20.1 Calculus of ureter (principal); N40.0 Benign prostatic hyperplasia without lower urinary tract symptoms; Z89.021 Acquired absence of right finger(s); Z90.81 Acquired absence of spleen; Z79.899 Other long term (current) drug therapy
CPT/HCPCS: 74018; 87081

== ENCOUNTER → 2021-09-19 | Outpatient (CLI) | payer BC ==
[~2021-09-19] MED LIST changes: +NITR-65 PO
--- NOTE | 2021-09-19 13:16 | Diagnostic Imaging Report ---
INDICATION: History of ureteral calculus. Status post ESWL. COMPARISON: 09/13/2021. FINDINGS: Two frontal radiographic views of the abdomen were obtained. The extraosseous calcification described on the exam dated 09/13/2021 is no longer identified. Pelvic phleboliths are noted. No unexpected radiopaque foreign bodies are seen. Small bowel loops are nondistended. There is no large collection of free intraperitoneal air. Osseous structures show no gross acute abnormalities. IMPRESSION: 1. No unexpected extraosseous calcifications. 2. Nonobstructed small bowel gas pattern. Dictated by: Dictated on workstation # [id number]
== END ==
LOC: RAD 11:57
PROVIDERS: ATTEND Urology
DX: N20.1 Calculus of ureter (principal); Z98.890 Other specified postprocedural states
CPT/HCPCS: 74018

== ENCOUNTER → 2021-10-03 | Outpatient (CLI) | payer BC ==
[~2021-10-03] MED LIST changes: +CATHETER FLUSH 10 ML SYR IVP PRN
--- NOTE | 2021-10-03 17:02 | Diagnostic Imaging Report ---
Exam: Nuclear medicine whole body bone scan. Date: October 03, 2021. Indication: 56-year-old male, history of prostate cancer. Evaluation for bone metastasis. Comparison: CT abdomen pelvis October 03, 2021. CT abdomen pelvis September 06, 2021. Findings: 25.8 mCi of technetium labeled MDP radiotracer was administered. Delayed whole body scintigraphic images were subsequently obtained. There is no identified radiotracer avid lesion to specifically suggest an osteoblastic bone metastasis. Impression: 1. No nuclear medicine evidence of an osteoblastic bone metastasis. Dictated by: Dictated on workstation # [id number]
== END ==
LOC: CARD 12:00
PROVIDERS: ATTEND Urology
DX: C61 Malignant neoplasm of prostate (principal)
CPT/HCPCS: 78306; A9503

== ENCOUNTER → 2021-10-03 | Outpatient (CLI) | payer BC ==
[~2021-10-03] MED LIST changes: -CATHETER FLUSH 10 ML SYR IVP PRN
--- NOTE | 2021-10-03 13:27 | Diagnostic Imaging Report ---
PROCEDURE: CT abdomen and pelvis without contrast. TECHNIQUE: Multiple contiguous axial images were obtained through the abdomen and pelvis without the use of intravenous contrast. Auto Exposure Controls were utilized during the CT exam to meet ALARA standards for radiation dose reduction. INDICATION: Prostate carcinoma and nephrolithiasis and ureteral calculus. Correlation is made with CT study from 09/06/2021. The lung bases are clear. The liver, gallbladder and pancreas are unremarkable. Spleen is surgically absent. Adrenal glands are unremarkable. Small nonobstructing calculus left kidney is again noted. There is a tiny nonobstructing calculus in the lower pole of the right kidney previously noted the large calculus in the proximal right ureter is no longer visualized and has likely passed. No ureteral calculi are seen. No bladder calculi are detected. Aorta is nonaneurysmal. Bowel loops are normal caliber. Left inguinal hernia again containing portions of the descending colon sigmoid is again noted without evidence of strangulation or bowel obstruction. There is no free fluid or fluid collection. Prostate is unremarkable. IMPRESSION: 1. Bilateral nonobstructing nephrolithiasis. 2. Previously noted proximal right ureteric calculus is no longer visualized and has likely passed. No ureteral calculi or hydronephrosis is detected. No bladder calculi are seen. 3. Left inguinal hernia containing portions of the descending colon and sigmoid. No spiculation or obstruction is identified. Dictated by: Dictated on workstation # [id number]
== END ==
LOC: RAD 11:45
PROVIDERS: ATTEND Urology
DX: C61 Malignant neoplasm of prostate (principal); N20.2 Calculus of kidney with calculus of ureter; K40.90 Unilateral inguinal hernia, without obstruction or gangrene, not specified as recurrent
CPT/HCPCS: 74176

== ENCOUNTER → 2022-03-09 | Outpatient (CLI) | payer BC ==
[~2022-03-09] VITALS: Ht 190.5 cm; Wt 91.0 kg
[~2022-03-09] MED LIST changes: +ATOR20TA66 PO
== END | disposition home or self-care (01) ==
LOC: PREOP 05:38
PROVIDERS: ATTEND Surgery
DX: Z01.818 Encounter for other preprocedural examination (principal)

== ENCOUNTER 2022-03-16 05:58 | Day surgery (SDC) | payer BC ==
[2022-03-16] VITALS (11 sets, daily range): BP systolic 96–138; BP diastolic 61–85
[~2022-03-16] VITALS: Ht 188 cm; Wt 91.6 kg
[2022-03-16] MEDS: LACTATED RINGERS 1,000 ML IV PRN ×2 (06:28→08:45)
[2022-03-16] MEDS ORDERED: BUP/EPI 0.5% 1:200,000 (MARCAINE) 10ML VIAL IJ ONE (06:57)
[2022-03-16] MEDS ORDERED: proPOfol 200 MG/20 ML (DIPRIVAN) VIAL IV ONE (07:08)
[2022-03-16] MEDS ORDERED: ONDANSETRON 4 MG/2 ML (SDV) Z0FRAN ONE (07:08)
[2022-03-16] MEDS ORDERED: LIDOCAINE PF 2% 5 ML (XYLOCAINE) VIAL ONE (07:08)
[2022-03-16] MEDS ORDERED: fentaNYL INJ 100 MCG/2 ML AMP ONE (07:08)
[2022-03-16] MEDS ORDERED: ceFAZolin 2 GM IV Premixed 50 ML ONE (07:09)
[2022-03-16] MEDS ORDERED: MIDAZOLAM 2 MG/2 ML (VERSED) VIAL ONE (07:09)
--- NOTE | 2022-03-16 07:54 | Progress Note-Pre Operative ---
Pre-Operative Progress Note Date of Available H&P: Feb 13, 2022 Date H&P Reviewed: Mar 16, 2022 Time H&P Reviewed: 07:45 History & Physical: H&P Reviewed, Patient Examed, No changes noted Pre-Operative Diagnosis: left inguinal hernia JA TALAMANTES DO Mar 16, 2022 07:54
[2022-03-16] MEDS ORDERED: DOCU-143 PO (08:55)
[2022-03-16] MEDS ORDERED: ACHD5005 PO (08:55)
--- NOTE | 2022-03-16 08:56 | Discharge Inst-Simple/Standard ---
Discharge Inst-Standard Discharge Medications New, Converted or Re-Newed RX: Transmitted to Pharmacy Patient Instructions/Follow Up Plan of Care/Instructions/FU: 2 weeks anurag Activity as Tolerated: No Discharge Diet: Regular Diet Other Inst to Patient Follow up Appt: Make appointment for 2 week. Instructions: No lifting greater than 10 pounds. No strenuous activity. May shower in 24 hours, no tub bath or soaking. Use incentive spirometer at home as directed. No Smoking Skin/Wound Care: You have special glue over your incision that will fall off on it's own. Symptoms to Report: Appetite Changes, Extremity Discoloration, Numbness/Tingling, Swelling Increased, Bleeding Excessive, Eyesight Changes, Pain Increased, Urine Color Change, Constipation(Persistent), Fever over 101 degree F, Pain/Pressure in chest, Urinating Difficulty, Cough Up/Vomit Blood, Heart Beat Irreg/Pounding, Pain/Pressure in jaw, Vaginal Bleeding Increase, Cramps in feet or legs, Lightheadedness, Pain/Pressure in shoulder, Diarrhea(Persistent), Memory Changes Suddenly, Questions/Concerns, Weight gain consecutive days, Dizziness/Fainting, Nausea/Vomiting, Shortness of Breath, Weight gain over 2 pounds If questions or concerns contact your physician Or seek help at emergency department. JA TALAMANTES DO Mar 16, 2022 08:56
[2022-03-16] MEDS ORDERED: SEVOFLURANE (ULTANE) 15 ML INHAL SOLN ONE ×2 (08:57→08:58)
--- NOTE | 2022-03-16 09:00 | Progress Note-Post Operative ---
Post-Operative Progess Note Surgeon (s)/Assembly Person (s) Surgeon JA TALAMANTES DO Assembly Person: Dr. Vázquez to assist in retraction dissection and closure Pre-Operative Diagnosis left inguinal hernia Post-Operative Diagnosis Left direct and indirect inguinal hernia left cord lipoma Procedure & Operative Findings Date of Procedure 03/16/22 Procedure Performed/Findings PROCEDURE: Open left direct and indirect inguinal hernia repair and excision left cord lipoma COMPLICATIONS: None. INDICATIONS: The patient is a 56, male male with a inguinal hernia. He understands risks and benefits of procedure and wished to proceed with procedure. Consent was signed in the chart. DESCRIPTION OF PROCEDURE: The patient was taken to the operating suite, was prepped and draped in sterile fashion. Surgical pause was performed. Local anesthetic was infiltrated in the lower quadrant. Incision was made and cautery used to dissect down to the external oblique, which was then opened down through the external ring. The spermatic cord was then dissected around. A [place] drain was placed around it and there was a direct defect present. A indirect hernia present which was then dissected off of spermatic cord. Cord lipoma was removed using cautery. The hernia sac was then twisted and suture ligated. Direct defect was closed using 2-0 vicryl. Using ProGrip mesh, this was secured at Jona's ligament and then incorporated around the spermatic cord and placed under the external oblique. Hemostasis was achieved. The external oblique was then closed recreating the external ring and then the subcutaneous tissues were then reapproximated using 3-0 Vicryl and skin was then closed using 4-0 Monocryl in a subcuticular fashion. The abdomen was then washed and dried and Skin Affix was placed over the incision. The patient tolerated procedure well without any complications and taken to recovery room in stable condition. Anesthesia Type general Estimated Blood Loss Estimated blood loss (mL): minimal Specimens/Packing Specimens Removed Left hernia sac and cord lipoma JA TALAMANTES DO Mar 16, 2022 09:00
--- NOTE | 2022-03-16 09:11 | Anesthesia-General Post-Op ---
General Patient Condition Mental Status/LOC: Same as Preop Cardiovascular: Satisfactory Nausea/Vomiting: Absent Respiratory: Satisfactory Pain: Controlled Complications: Absent Post Op Complications Complications None Follow Up Care/Instructions Patient Instructions None needed. Anesthesia/Patient Condition Patient Condition Patient is doing well, no complaints, stable vital signs, no apparent adverse anesthesia problems. No complications reported per nursing. DARREL EVERETT CRNA Mar 16, 2022 09:11
[2022-03-16] MEDS ORDERED: HYDROmorphone 2 MG/ML VIAL (DILAUDID) IV ONE (09:15)
[2022-03-16] MEDS ORDERED: MEPERIDINE (DEMEROL) INJ 50 MG/ML IVP ONE (09:15)
[2022-03-16] MEDS ORDERED: ONDANSETRON 4 MG/2 ML (SDV) Z0FRAN IVP PRN (09:15)
[2022-03-16] MEDS: morphine INJ 10 MG/ML 1ML (SYR OR VIAL) IVP ONE (09:36)
== END 2022-03-16 11:30 ==
LOC: SDC 05:58
PROVIDERS: ATTEND Surgery
DX: K40.90 Unilateral inguinal hernia, without obstruction or gangrene, not specified as recurrent (principal); D17.6 Benign lipomatous neoplasm of spermatic cord; C61 Malignant neoplasm of prostate
CPT/HCPCS: 49505; 55520; 87081; C1781

== ENCOUNTER → 2023-05-16 | Outpatient (CLI) | payer BC ==
[2023-05-16 12:31] LABS: BASOPHILS # (AUTO) 0.1 10^3/uL (0.0-0.1); BASOPHILS % (AUTO) 1 % (0-10); EOSINOPHILS # (AUTO) 0.1 10^3/uL (0.0-0.3); EOSINOPHILS % (AUTO) 2 % (0-10); HEMATOCRIT 43 % (40-54); HEMOGLOBIN 15.1 g/dL (13.3-17.7); LYMPHOCYTES # (AUTO) 2.4 10^3/uL (1.0-4.0); LYMPHOCYTES % (AUTO) 28 % (12-44); MEAN CORPUSCULAR HEMOGLOBIN 33 pg (25-34); MEAN CORPUSCULAR HGB CONC 35 g/dL (32-36); MEAN CORPUSCULAR VOLUME 92 fL (80-99); MEAN PLATELET VOLUME 10.1 fL (9.0-12.2); MONOCYTES # (AUTO) 1.1 10^3/uL (0.0-1.0); MONOCYTES % (AUTO) 12 % (0-12); NEUTROPHILS # (AUTO) 4.9 10^3/uL (1.8-7.8); NEUTROPHILS % (AUTO) 58 % (42-75); PLATELET COUNT 359 10^3/uL (130-400); WHITE BLOOD COUNT 8.6 10^3/uL (4.3-11.0)
[2023-05-16 13:04] LABS: ALBUMIN 4.2 GM/DL (3.2-4.5); BILIRUBIN,TOTAL 0.5 MG/DL (0.1-1.0); CALCIUM 9.3 MG/DL (8.5-10.1); CREATININE SERUM 0.92 MG/DL (0.60-1.30); POTASSIUM 3.7 MMOL/L (3.6-5.0); TOTAL PROTEIN 7.3 GM/DL (6.4-8.2); URIC ACID 6.6 MG/DL (2.6-7.2)
--- NOTE | 2023-05-16 14:18 | Diagnostic Imaging Report ---
EXAMINATION: Knee radiographs, 3 views. COMPARISON: None. HISTORY: 57-year-old male, chronic right knee pain. FINDINGS: There is no acute fracture. There is no knee joint effusion. The joint spaces are well preserved. IMPRESSION: 1. Unremarkable radiographs of the right knee. Dictated by: Dictated on workstation # [id number]
== END ==
LOC: RAD 12:14
PROVIDERS: ATTEND Nurse Practitioner Family
DX: M25.561 Pain in right knee (principal); G89.29 Other chronic pain; M25.461 Effusion, right knee; Z28.21 Immunization not carried out because of patient refusal
CPT/HCPCS: 36415; 73562; 80053; 84550; 85025